=== PATIENT | male | born 1950 | race Caucasian/White ===

== ENCOUNTER → 2023-08-10 07:24 | Outpatient (REF) | payer MEDICARE, SELFPAY | LOC: HWRAD 07:24 | PROVIDERS: ATTENDING PHYSICIAN Otolaryngology; FAMILY PHYSICIAN Physician Assistant Medical | DX: H90.A32 Mixed conductive and sensorineural hearing loss, unilateral, left ear with restricted hearing on the contralateral side (principal) | CPT/HCPCS: 70480 ==